=== PATIENT | male | born 1990 | race African-American/Black ===

== ENCOUNTER 2018-12-03 08:07 | Emergency (ER) | payer SELFPAY ==
--- NOTE | 2018-12-03 08:54 | ER ---
Nurse's Notes [facility] Name: Antonio Ryan Age: 27 yrs Sex: Male : 1990 Arrival Date: 12/03/2018 Time: 08:08 Bed 13 Private MD: Diagnosis: Cellulitis of the Right 2nd Finger Presentation: 12/03 08:16 Presenting complaint: Patient states: patient complains of swelling on the left index da2 finger for three days. Transition of care: patient was not received from another setting of care. Onset of symptoms was November 30, 2018. Risk Assessment: Do you want to hurt yourself or someone else? Patient reports no desire to harm self or others. Initial Sepsis Screen: Does the patient meet any 2 criteria? No. Patient's initial sepsis screen is negative. Does the patient have a suspected source of infection? No. Patient's initial sepsis screen is negative. Care prior to arrival: None. 08:16 Method Of Arrival: Ambulatory da2 08:16 Acuity: CITLALLI 4 da2 Triage Assessment: 08:19 General: Appears in no apparent distress. Behavior is calm, cooperative. Pain: da2 Complains of pain in left index finger Pain does not radiate. Pain currently is 10 out of 10 on a pain scale. Quality of pain is described as throbbing, Pain began 2-3 days ago. Is continuous. Neuro: Level of Consciousness is awake, alert, obeys commands. Cardiovascular: Patient's skin is warm and dry. Respiratory: Airway is patent Respiratory effort is even, unlabored, Respiratory pattern is regular, symmetrical. Derm: Skin is dry, Skin is normal, Skin temperature is warm. Musculoskeletal: Swelling present in left index finger. Historical: - Allergies: 08:19 No Known Allergies; da2 - Home Meds: 08:19 None [Active]; da2 - PMHx: 08:19 None; da2 - PSHx: 08:19 testicular surgery; left hip; da2 - Immunization history:: Adult Immunizations unknown, Last tetanus immunization: unknown. - Social history:: Smoking status: Patient uses tobacco products, smokes one-half pack cigarettes per day. - Ebola Screening: : No symptoms or risks identified at this time. Screenin:30 Abuse screen: Denies threats or abuse. Denies injuries from another. Nutritional jl7 screening: No deficits noted. Tuberculosis screening: No symptoms or risk factors identified. Fall Risk None identified. Assessment: 08:24 General: see triage assessment. da2 Vital Signs: 08:19 BP 135 / 88; Pulse 82; Resp 17 S; Temp 98.3(O); Pulse Ox 99% on R/A; Pain 10/10; da2 ED Course: 08:08 Patient arrived in ED. as 08:11 Terrie Chopra, RN is Primary Nurse. jl7 08:18 Triage completed. da2 08:18 Juaquin Le PA is PHCP. jmm 08:19 Arm band placed on right wrist. da2 08:19 Patient has correct armband on for positive identification. Bed in low position. Call jl7 light in reach. Side rails up X 1. Pulse ox on. NIBP on. 08:25 Ice pack applied. da2 08:53 Dustin Givens MD is Attending Physician. [facility] 08:59 No provider procedures requiring assistance completed. Patient did not have IV access jl7 during this emergency room visit. Administered Medications: No medications were administered Outcome: 08:53 Discharge ordered by MD. [facility] 08:59 Discharged to home ambulatory. jl7 08:59 Condition: stable 08:59 Discharge instructions given to patient, Instructed on discharge instructions, follow up and referral plans. medication usage, Demonstrated understanding of instructions, follow-up care, medications, Prescriptions given X 2. 09:00 Patient left the ED. jl Signatures: Juaquin Le PA PA jmm Martinez, Amelia as Terrie Chopra RN RN jl7 Paresh Thompson RN RN 2
--- NOTE | 2018-12-03 08:54 | EDPHYS ---
Physician Documentation [facility] Name: Antonio Ryan Age: 27 yrs Sex: Male : 1990 Arrival Date: 12/03/2018 Time: 08:08 Bed 13 Private MD: HAILY Physician Dustin Givens HPI: 12/03 08:48 This 27 yrs old Black Male presents to ER via Ambulatory with complaints of Finger jmm Swelling. 08:48 The patient or guardian reports pain, swelling. Onset: The symptoms/episode jmm began/occurred gradually, 3 day(s) ago. Modifying factors: The symptoms are alleviated by nothing, the symptoms are aggravated by nothing. Associated signs and symptoms: Pertinent negatives: fever. This is a 27 year old male with no chronic medical conditions that presents to the ED with complaints of pain and swelling to his right 2nd finger beginning 3 days ago. Patient denies fever. Patient states this occurs at nearly a yearly basis. Patient states need and I and D with a previous episode which was much worse. . Historical: - Allergies: 08:19 No Known Allergies; da2 - Home Meds: 08:19 None [Active]; da2 - PMHx: 08:19 None; da2 - PSHx: 08:19 testicular surgery; left hip; da2 - Immunization history:: Adult Immunizations unknown, Last tetanus immunization: unknown. - Social history:: Smoking status: Patient uses tobacco products, smokes one-half pack cigarettes per day. - Ebola Screening: : No symptoms or risks identified at this time. ROS: 08:48 Constitutional: Negative for fever, chills, and weight loss, Cardiovascular: Negative jmm for chest pain, palpitations, and edema, Respiratory: Negative for shortness of breath, cough, wheezing, and pleuritic chest pain. 08:48 MS/extremity: Positive for pain, swelling. 08:48 All other systems are negative. Exam: 08:48 Head/Face: atraumatic. Eyes: EOMI, no conjunctival erythema appreciated ENT: Moist jmm Mucus Membranes Neck: Trachea midline, Supple Chest/axilla: Normal chest wall appearance and motion. Cardiovascular: Regular rate and rhythm. No edema appreciated Respiratory: Normal respirations, no respiratory distress appreciated Abdomen/GI: Non distended, soft Back: Normal ROM 08:48 Constitutional: The patient appears in no acute distress, alert, awake. 08:48 Musculoskeletal/extremity: FROM appreciated to the left 2nd finger, no pain on extension, < 2 sec dist cap refill, . 08:48 Skin: Appearance: erythema noted to the right 2nd finger, no fluctuance appreciated. 08:48 Neuro: Orientation: is normal, Mentation: is normal, Memory: is normal. 08:48 Psych: Behavior/mood is pleasant, cooperative. Vital Signs: 08:19 BP 135 / 88; Pulse 82; Resp 17 S; Temp 98.3(O); Pulse Ox 99% on R/A; Pain 10/10; da2 MDM: 08:22 Patient medically screened. [facility] 08:51 Data reviewed: vital signs, nurses notes. Counseling: I had a detailed discussion with jalen the patient and/or guardian regarding: the historical points, exam findings, and any diagnostic results supporting the discharge/admit diagnosis, the need for outpatient follow up, to return to the emergency department if symptoms worsen or persist or if there are any questions or concerns that arise at home. ED course: Patient is alert and non toxic in appearance in the ED. I discussed with the patient the need to follow up with pcp and otherwise given strict return precautions. Patient understood and agrees with the plan of care. . Administered Medications: No medications were administered Disposition: 13:28 Co-signature as Attending Physician, Dustin Givens MD I agree with the assessment and jagdsih plan of care. Disposition: 12/03/18 08:53 Discharged to Home. Impression: Cellulitis of the Right 2nd Finger. - Condition is Stable. - Discharge Instructions: Cellulitis, Adult. - Prescriptions for Ultracet 37.5- 325 mg Oral Tablet - take 1 tablet by ORAL route every 6 hours - for up to 5 days; do not exceed 8 tablets per day.; 12 tablet. Bactrim DS 800- 160 mg Oral Tablet - take 1 tablet by ORAL route every 12 hours for 10 days; 20 tablet. - Medication Reconciliation Form, Thank You Letter, Antibiotic Education, Prescription Opioid Use, Work release form form. - Follow up: Private Physician; When: 2 - 3 days; Reason: Recheck today's complaints, Continuance of care, Re-evaluation by your physician. Signatures: Dustin Givens MD MD cha Mickail, Joel, PA PA Terrie Pemberton RN RN jl7 Paresh Thompson RN RN da2 Corrections: (The following items were deleted from the chart) 09:00 08:53 12/03/2018 08:53 Discharged to Home. Impression: Cellulitis of the Right 2nd jl7 Finger. Condition is Stable. Forms are Medication Reconciliation Form, Thank You Letter, Antibiotic Education, Prescription Opioid Use. Follow up: Private Physician; When: 2 - 3 days; Reason: Recheck today's complaints, Continuance of care, Re-evaluation by your physician. jalen
[2018-12-03 09:06] VITALS: BP 135/88; TEMP 98.3; O2SAT 99
== END 2018-12-03 09:00 | disposition home or self-care (01) ==
LOC: ER 08:07
DX: L03.011 Cellulitis of right finger (principal); F17.210 Nicotine dependence, cigarettes, uncomplicated
CPT/HCPCS: 99283

== ENCOUNTER 2019-08-10 13:49 | Emergency (ER) | payer SELFPAY ==
--- OUTSIDE RECORDS SUMMARY | 2019-08-10 13:51 | XMS REPORT | Clinical Summary ---
:1990 Author Organization [facility] Address [address] [place] [id number] Care Team Providers Name Role Phone Unavailable Primary Care Provider Unavailable Allergies Not on File Medications Medication Sig Dispensed Refills Start Date End Date Status ibuprofen (MOTRIN) 800 Take 1 tablet by 30 tablet 0 02/11/2016 Active mg tabletIndications: mouth every 8 Pain, dental hours as needed for Pain (take with food). traMADol (ULTRAM) 50 Take 1 tablet by 15 tablet 0 02/11/2016 Active mg tabletIndications: mouth every 8 Pain, dental hours as needed for Pain. Active Problems Not on file Social History Tobacco Use Types Packs/Day Years Used Date Current Every Day Smoker Alcohol Use Drinks/Week oz/Week Comments Not Asked 0 Standard drinks or equivalent 0.0 Sex Assigned at Date Recorded Not on file Job Start Date Occupation Industry Not on file Not on file Not on file Travel History Travel Start Travel End No recent travel history available. Last Filed Vital Signs Not on file Plan of Treatment Health Maintenance Due Date Last Done Comments IMM Influenza Seasonal Nov to April (>/= 19 yrs) 11/20/2019 Results Not on fileafter 08/09/2018 Insurance Payer Benefit Plan / Subscriber ID Effective Dates Phone Addre ss Type Group CIGNA CIGNA xxxxxxxxxxx 2016-[facility] [phone] [address] t [employer] [id number] (Work) [id number]
--- OUTSIDE RECORDS SUMMARY | 2019-08-10 13:51 | XMS REPORT | Clinical Summary ---
:[address] [facility] Address [address] [place] [address] Care Team Providers Name Role Phone Asked, No Pcp Primary Care Provider Unavailable Allergies No Known Allergies Medications No known medications Active Problems Not on file Social History Tobacco Use Types Packs/Day Years Used Date Current Every Day Smoker Smokeless Tobacco: Never Used Sex Assigned at Date Recorded Not on file Job Start Date Occupation Industry Not on file Not on file Not on file Travel History Travel Start Travel End No recent travel history available. Last Filed Vital Signs Not on file Plan of Treatment Health Maintenance Due Date Last Done Comments INFLUENZA VACCINE 09/20/2019 Results Not on fileafter 08/09/2018
--- NOTE | 2019-08-10 15:00 | ER ---
Nurse's Notes [facility] Name: Antonio Ryan Age: 28 yrs Sex: Male : 1990 Arrival Date: 08/10/2019 Time: 13:50 Bed 6 Private MD: Diagnosis: Periapical abscess without sinus;Essential (primary) hypertension Presentation: 08/09 14:05 Chief complaint: Patient states: L sided facial swelling that began Sunday. Pt reports ss he has a bad tooth. Coronavirus screen: Proceed with normal triage. Patient denies a cough. Patient denies shortness of breath or difficulty breathing. Patient denies measured and/or subjective temperature greater than 100.4F prior to today's visit. Patient denies travel on a cruise ship or to a country the [facility] currently lists as an affected area. Patient denies contact with known and/or suspected case of COVID-19. Ebola Screen: Patient denies exposure to infectious person. Patient denies travel to an Ebola-affected area in the 21 days before illness onset. Initial Sepsis Screen: Does the patient meet any 2 criteria? No. Patient's initial sepsis screen is negative. Does the patient have a suspected source of infection? Yes: Other: dental. Risk Assessment: Do you want to hurt yourself or someone else? Patient reports no desire to harm self or others. Onset of symptoms was August 08, 2019. 14:05 Method Of Arrival: Ambulatory ss 14:05 Acuity: CITLALLI 3 ss Historical: - Allergies: 14:07 Sulfa (Sulfonamide Antibiotics); ss - Home Meds: 14:07 None [Active]; ss - PMHx: 14:07 None; ss - PSHx: 14:07 testicular surgery; left hip; ss - Immunization history:: Adult Immunizations up to date. - Social history:: Smoking status: Patient reports the use of cigarette tobacco products, smokes one-half pack cigarettes per day. Screenin:24 Abuse screen: Denies threats or abuse. Denies injuries from another. Nutritional sv screening: No deficits noted. Tuberculosis screening: No symptoms or risk factors identified. Fall Risk None identified. Assessment: 15:20 General: Appears in no apparent distress. uncomfortable, well developed, Behavior is sv calm, cooperative, appropriate for age. Pain: Complains of pain in left cheek and left mandible Pain currently is 10 out of 10 on a pain scale. Pain began 2-3 days ago. Is continuous. Neuro: Level of Consciousness is awake, alert, obeys commands, Oriented to person, place, time, situation, Moves all extremities. Full function Gait is steady. Respiratory: Airway is patent Respiratory effort is even, unlabored, Respiratory pattern is regular, symmetrical. EENT: Reports pain in left cheek and left mandible. Derm: Skin is intact, Skin is pink, warm \T\ dry. 15:27 Reassessment: Pt waiting IM shot time before discharge. sv 15:47 Reassessment: Patient appears in no apparent distress at this time. Patient and/or sv family updated on plan of care and expected duration. Pain level reassessed. Patient is alert, oriented x 3, equal unlabored respirations, skin warm/dry/pink. Patient states symptoms have improved. Vital Signs: 14:05 BP 160 / 81; Pulse 87; Resp 17; Temp 98.4(TE); Pulse Ox 100% on R/A; Weight 112.49 kg; ss Height 6 ft. 2 in. (187.96 cm); Pain 10/10; 15:00 BP 151 / 98; Pulse 76; Resp 18; Pulse Ox 100% ; sv 15:30 BP 154 / 98; Pulse 76; Resp 18; Pulse Ox 100% ; sv 15:46 Pain 5/10; sv 14:05 Body Mass Index 31.84 (112.49 kg, 187.96 cm) ED Course: 13:50 Patient arrived in ED. bp1 14:07 Triage completed. ss 14:07 Arm band placed on right wrist. ss 14:36 Juliet Keyes FNP-C is PHCP. snw 14:36 Bola Haynes MD is Attending Physician. snw 14:45 Laury Mason RN is Primary Nurse. sv 15:24 Patient has correct armband on for positive identification. Bed in low position. Call sv light in reach. Adult w/ patient. Door closed. Head of bed elevated. 15:47 No provider procedures requiring assistance completed. Patient did not have IV access sv during this emergency room visit. Administered Medications: 15:24 Drug: Dilaudid 1 mg {Note: rass2.} Route: IM; Site: right deltoid; sv 15:46 Follow up: Pain 5/10 Adult; Response: No adverse reaction; Pain is decreased; RASS: sv Alert and Calm (0) 15:24 Drug: Clindamycin 300 mg Route: PO; sv 15:46 Follow up: Response: No adverse reaction sv 15:24 Drug: Motrin 600 mg Route: PO; sv 15:46 Follow up: Response: No adverse reaction sv Outcome: 14:59 Discharge ordered by . sned 15:47 Discharged to home ambulatory, with family. sv 15:47 Condition: stable 15:47 Discharge instructions given to patient, family, Instructed on discharge instructions, follow up and referral plans. no drinking with medication, no driving heavy equipment, medication usage, Demonstrated understanding of instructions, follow-up care, medications, Prescriptions given X 4. 15:47 Patient left the ED. sv Signatures: Laury Mason, RN RN Juliet Keyes, DIRECTOR FEDERAL-C DIRECTOR FEDERAL-[place] Shirin Contreras RN RN Rosalba Weinstein
--- NOTE | 2019-08-10 15:00 | EDPHYS ---
Physician Documentation [facility] Name: Antonio Ryan Age: 28 yrs Sex: Male : 1990 Arrival Date: 08/10/2019 Time: 13:50 Bed 6 Private MD: ED Physician Bola Haynes HPI: 08/09 20:00 This 28 yrs old Black Male presents to ER via Ambulatory with complaints of Facial snw Swelling, Abcess Tooth. 20:00 The patient presents with pain, swelling. The problem is located in the left cheek. snw Onset: The symptoms/episode began/occurred suddenly, 2 day(s) ago, and became persistent. Duration: The symptoms are continuous. Associated signs and symptoms: Pertinent positives: pain, swelling, facial, Pertinent negatives: chills, fever, vomiting. Severity of symptoms: At their worst the symptoms were moderate. The patient has not experienced similar symptoms in the past. It is unknown whether or not the patient has recently seen a physician. Historical: - Allergies: 14:07 Sulfa (Sulfonamide Antibiotics); ss - Home Meds: 14:07 None [Active]; ss - PMHx: 14:07 None; ss - PSHx: 14:07 testicular surgery; left hip; ss - Immunization history:: Adult Immunizations up to date. - Social history:: Smoking status: Patient reports the use of cigarette tobacco products, smokes one-half pack cigarettes per day. ROS: 19:59 Constitutional: Negative for fever, chills, and weight loss, Eyes: Negative for injury, snw pain, redness, and discharge, Neck: Negative for injury, pain, and swelling, Cardiovascular: Negative for chest pain, palpitations, and edema, Respiratory: Negative for shortness of breath, cough, wheezing, and pleuritic chest pain, Abdomen/GI: Negative for abdominal pain, nausea, vomiting, diarrhea, and constipation, Back: Negative for injury and pain, : Negative for injury, bleeding, discharge, and swelling, MS/Extremity: Negative for injury and deformity, Skin: Negative for injury, rash, and discoloration, Neuro: Negative for headache, weakness, numbness, tingling, and seizure. 19:59 ENT: Positive for dental pain, Teeth pain Exam: 19:56 Constitutional: This is a well developed, well nourished patient who is awake, alert, snw and in no acute distress. Eyes: Pupils equal round and reactive to light, extra-ocular motions intact. Lids and lashes normal. Conjunctiva and sclera are non-icteric and not injected. Cornea within normal limits. Periorbital areas with no swelling, redness, or edema. ENT: Nares patent. No nasal discharge, no septal abnormalities noted. Tympanic membranes are normal and external auditory canals are clear. Oropharynx with no redness, swelling, or masses, exudates, or evidence of obstruction, uvula midline. Mucous membranes moist. Dental caries to back molars to left with tenderness Neck: Trachea midline, no thyromegaly or masses palpated, and no cervical lymphadenopathy. Supple, full range of motion without nuchal rigidity, or vertebral point tenderness. No Meningismus. Chest/axilla: Normal chest wall appearance and motion. Nontender with no deformity. No lesions are appreciated. Cardiovascular: Regular rate and rhythm with a normal S1 and S2. No gallops, murmurs, or rubs. Normal PMI, no JVD. No pulse deficits. Respiratory: Lungs have equal breath sounds bilaterally, clear to auscultation and percussion. No rales, rhonchi or wheezes noted. No increased work of breathing, no retractions or nasal flaring. Abdomen/GI: Soft, non-tender, with normal bowel sounds. No distension or tympany. No guarding or rebound. No evidence of tenderness throughout. Back: No spinal tenderness. No costovertebral tenderness. Full range of motion. Skin: Warm, dry with normal turgor. Normal color with no rashes, no lesions, and no evidence of cellulitis. MS/ Extremity: Pulses equal, no cyanosis. Neurovascular intact. Full, normal range of motion. Neuro: Awake and alert, GCS 15, oriented to person, place, time, and situation. Cranial nerves II-XII grossly intact. Motor strength 5/5 in all extremities. Sensory grossly intact. Cerebellar exam normal. Normal gait. Psych: Awake, alert, with orientation to person, place and time. Behavior, mood, and affect are within normal limits. 19:56 Head/face: Noted is swelling, that is moderate, of the left cheek. Vital Signs: 14:05 BP 160 / 81; Pulse 87; Resp 17; Temp 98.4(TE); Pulse Ox 100% on R/A; Weight 112.49 kg; ss Height 6 ft. 2 in. (187.96 cm); Pain 10/10; 15:00 BP 151 / 98; Pulse 76; Resp 18; Pulse Ox 100% ; sv 15:30 BP 154 / 98; Pulse 76; Resp 18; Pulse Ox 100% ; sv 15:46 Pain 5/10; sv 14:05 Body Mass Index 31.84 (112.49 kg, 187.96 cm) ss MDM: 14:46 Patient medically screened. snw 19:57 Data reviewed: vital signs, nurses notes. Data interpreted: Pulse oximetry: on room air snw is 100 %. Interpretation: normal. Counseling: I had a detailed discussion with the patient and/or guardian regarding: the historical points, exam findings, and any diagnostic results supporting the discharge/admit diagnosis, the presence of at least one elevated blood pressure reading (>120/80) during this emergency department visit, the need for outpatient follow up, to return to the emergency department if symptoms worsen or persist or if there are any questions or concerns that arise at home. Response to treatment: the patient's symptoms have markedly improved after treatment. Special discussion: I have referred the patient to see his PCP for further evaluation of high blood pressure. Based on the history and exam findings, there is no indication for further emergent testing or inpatient evaluation. I discussed with the patient/guardian the need to see a dentist for further evaluation of the symptoms. I discussed with the patient/guardian the need to see the primary care provider for further evaluation of the symptoms. Administered Medications: 15:24 Drug: Dilaudid 1 mg {Note: rass2.} Route: IM; Site: right deltoid; sv 15:46 Follow up: Pain 5/10 Adult; Response: No adverse reaction; Pain is decreased; RASS: sv Alert and Calm (0) 15:24 Drug: Clindamycin 300 mg Route: PO; sv 15:46 Follow up: Response: No adverse reaction sv 15:24 Drug: Motrin 600 mg Route: PO; sv 15:46 Follow up: Response: No adverse reaction sv Disposition: 08/10 07:06 Co-signature as Attending Physician, Bola Haynes MD. ma2 Disposition: 08/10/19 14:59 Discharged to Home. Impression: Periapical abscess without sinus, Essential (primary) hypertension. - Condition is Stable. - Discharge Instructions: Dental Abscess, Dental Pain, Hypertension, How to Take Your Blood Pressure, [id number], Diet and Dental Disease, DASH Eating Plan, Rehydration, Adult, Managing Your Hypertension. - Prescriptions for Clindamycin HCl 150 mg Oral Capsule - take 2 capsule by ORAL route every 8 hours for 10 days; 60 capsule. chlorhexidine gluconate 0.12 % Mucous Membrane mouthwash - place 15 milliliter by MUCOUS MEMBRANE route 2 times per day (after meals), swish in mouth for 30 seconds then spit out; 480 milliliter. Mobic 7.5 mg Oral Tablet - take 1 tablet by ORAL route 2 times per day take with food; 20 tablet. Ultram 50 mg Oral Tablet - take 1 tablet by ORAL route every 6 hours As needed; 12 tablet. - Medication Reconciliation Form, Thank You Letter, Antibiotic Education, Prescription Opioid Use, Work release form form. - Follow up: Emergency Department; When: As needed; Reason: Worsening of condition. Follow up: Private Physician; When: 1 - 2 days; Reason: Recheck today's complaints, Continuance of care, Re-evaluation by your physician. Signatures: Laury Mason RN RN sv Therrien, Shelly, ILEANA-C MELTER ASSISTANT-Shirin Salmeron RN RN ss Bola Haynes MD MD ny2 Corrections: (The following items were deleted from the chart) 08/09 15:47 14:59 08/10/2019 14:59 Discharged to Home. Impression: Periapical abscess without sv sinus; Essential (primary) hypertension. Condition is Stable. Forms are Medication Reconciliation Form, Thank You Letter, Antibiotic Education, Prescription Opioid Use. Follow up: Emergency Department; When: As needed; Reason: Worsening of condition. Follow up: Private Physician; When: 1 - 2 days; Reason: Recheck today's complaints, Continuance of care, Re-evaluation by your physician. snw
[2019-08-10] MEDS ORDERED: IBUPROFEN 200 MG TAB PO ONE (15:27)
[2019-08-10] MEDS ORDERED: HYDROMORPHONE HCL 1 MG/ML INJ ONE (15:27)
[2019-08-10] MEDS ORDERED: IBUPROFEN 400 MG TAB ONE (15:27)
[2019-08-10 15:54] VITALS: BP 160/81; TEMP 98.4; O2SAT 100
== END 2019-08-10 15:47 | disposition home or self-care (01) ==
LOC: ER 13:49
DX: K04.7 Periapical abscess without sinus (principal); I10 Essential (primary) hypertension; F17.210 Nicotine dependence, cigarettes, uncomplicated; Z88.2 Allergy status to sulfonamides
CPT/HCPCS: 96372; 99283; J1170

== ENCOUNTER 2019-08-24 14:11 | Emergency (ER) | payer SELFPAY ==
--- OUTSIDE RECORDS SUMMARY | 2019-08-24 14:13 | XMS REPORT | Clinical Summary ---
:1990 Author Organization [facility] Address [address] [place] [address] Care Team Providers Name Role Phone Asked, [...] INFLUENZA VACCINE 09/20/2019 Results Not on fileafter 08/23/2018
--- OUTSIDE RECORDS SUMMARY | 2019-08-24 14:13 | XMS REPORT | Clinical Summary ---
:[address] [facility] Address [address] [place] [id number] Care Team Providers Name Role Phone Unavailable [...] 19 yrs) 11/20/2019 Results Not on fileafter 08/23/2018 Insurance Payer Benefit Plan / Subscriber ID Effective Dates Phone Addre ss Type Group CIGNA CIGNA xxxxxxxxxxx 2016-[facility] [phone] [id number] t AMBER [place]DISON [id number] (Work) [id number]
[2019-08-24] MEDS ORDERED: IBUPROFEN 400 MG TAB ONE (14:42)
--- NOTE | 2019-08-24 15:18 | EDPHYS ---
Physician Documentation [facility] Name: Antonio Ryan Age: 28 yrs Sex: Male : 1990 Arrival Date: 08/24/2019 Time: 14:14 Bed 19 Private MD: ED Physician Bola Haynes HPI: 08/23 15:14 This 28 yrs old Black Male presents to ER via Ambulatory with complaints of Finger ma2 Injury. 15:14 Mechanism of injury: Crush injury:. Associated injuries: The patient sustained right ma2 5th finger. Onset: The symptoms/episode began/occurred suddenly, 2 day(s) ago. The patient has not experienced similar symptoms in the past. Historical: - Allergies: 14:31 Sulfa (Sulfonamide Antibiotics); ah - Home Meds: 14:31 None [Active]; ah - PMHx: 14:31 None; ah - PSHx: 14:31 left hip; testicles; ah - Immunization history:: Adult Immunizations up to date. - Social history:: Smoking status: Patient reports the use of cigarette tobacco products, smokes one-half pack cigarettes per day, Patient uses alcohol, occasionally. Patient/guardian denies using alcohol, street drugs, The patient lives alone. - Family history:: not pertinent. ROS: 15:14 Constitutional: Negative for fever, chills, and weight loss. ma2 15:14 All other systems are negative. Exam: 15:14 Constitutional: This is a well developed, well nourished patient who is awake, alert, ma2 and in no acute distress. ENT: Nares patent. No nasal discharge, no septal abnormalities noted. Tympanic membranes are normal and external auditory canals are clear. Oropharynx with no redness, swelling, or masses, exudates, or evidence of obstruction, uvula midline. Mucous membranes moist. Neck: Trachea midline, no thyromegaly or masses palpated, and no cervical lymphadenopathy. Supple, full range of motion without nuchal rigidity, or vertebral point tenderness. No Meningismus. Chest/axilla: Normal chest wall appearance and motion. Nontender with no deformity. No lesions are appreciated. Cardiovascular: Regular rate and rhythm with a normal S1 and S2. No gallops, murmurs, or rubs. Normal PMI, no JVD. No pulse deficits. Respiratory: Lungs have equal breath sounds bilaterally, clear to auscultation and percussion. No rales, rhonchi or wheezes noted. No increased work of breathing, no retractions or nasal flaring. Abdomen/GI: Soft, non-tender, with normal bowel sounds. No distension or tympany. No guarding or rebound. No evidence of tenderness throughout. Skin: Warm, dry with normal turgor. Normal color with no rashes, no lesions, and no evidence of cellulitis. MS/ Extremity: right 5th dital digit tenderness,, Pulses equal, no cyanosis. Neurovascular intact. Full, normal range of motion. Neuro: Awake and alert, GCS 15, oriented to person, place, time, and situation. Cranial nerves II-XII grossly intact. Motor strength 5/5 in all extremities. Sensory grossly intact. Cerebellar exam normal. Normal gait. Vital Signs: 14:25 BP 131 / 80; Pulse 76; Resp 17; Temp 98.4; Pulse Ox 98% ; Weight 112.94 kg; Height 6 ah ft. 2 in. (187.96 cm); Pain 8/10; 14:25 Body Mass Index 31.97 (112.94 kg, 187.96 cm) MDM: 14:48 Patient medically screened. ma2 15:14 Differential diagnosis: extremity fracture, sprain vs pain. Data reviewed: vital signs, ma2 nurses notes. Counseling: I had a detailed discussion with the patient and/or guardian regarding: the historical points, exam findings, and any diagnostic results supporting the discharge/admit diagnosis, the presence of at least one elevated blood pressure reading (>120/80) during this emergency department visit, the need for outpatient follow up. Response to treatment: the patient's symptoms have markedly improved after treatment. 08/23 14:29 Order name: XRAY Hand RIGHT 3 View; Complete Time: 16:06 mt 08/23 15:19 Order name: Finger Splint ma2 Administered Medications: 14:35 Drug: Ibuprofen 400 mg Route: PO; Disposition: 08/24/19 15:17 Discharged to Home. Impression: Nondisplaced fracture of distal phalanx of right little finger. - Condition is Stable. - Discharge Instructions: Finger Fracture, [id number]. - Prescriptions for Diclofenac Sodium 75 mg Oral Tablet Sustained Release - take 1 tablet by ORAL route 2 times per day; 30 tablet. - Medication Reconciliation Form, Thank You Letter, Antibiotic Education, Prescription Opioid Use, Work release form form. - Follow up: Private Physician; When: Tomorrow; Reason: Continuance of care. Follow up: Salvador Loza MD; When: Tomorrow; Reason: If symptoms return. Signatures: Dispatcher [employer] Laury Bravo RN RN Bola Haynes MD MD [facility] Riddhi Su RN RN Corrections: (The following items were deleted from the chart) 16:06 15:17 08/24/2019 15:17 Discharged to Home. Impression: Nondisplaced fracture of distal ma2 phalanx of right little finger. Condition is Stable. Forms are Medication Reconciliation Form, Thank You Letter, Antibiotic Education, Prescription Opioid Use. Follow up: Private Physician; When: Tomorrow; Reason: Continuance of care. ma2 16:28 16:06 08/24/2019 15:17 Discharged to Home. Impression: Nondisplaced fracture of distal sv phalanx of right little finger. Condition is Stable. Discharge Instructions: Finger Fracture, [id number]. Prescriptions for Diclofenac Sodium 75 mg Oral Tablet Sustained Release - take 1 tablet by ORAL route 2 times per day; 30 tablet. and Forms are Medication Reconciliation Form, Thank You Letter, Antibiotic Education, Prescription Opioid Use, Work release form. Follow up: Private Physician; When: Tomorrow; Reason: Continuance of care. Follow up: Dr. Salvador Loza; When: Tomorrow; Reason: If symptoms return. ma2
--- NOTE | 2019-08-24 15:18 | ER ---
Nurse's Notes [facility] Name: Antonio Ryan Age: 28 yrs Sex: Male : 1990 Arrival Date: 08/24/2019 Time: 14:14 Bed 19 Private MD: Diagnosis: Nondisplaced fracture of distal phalanx of right little finger Presentation: 08/23 14:25 Chief complaint: Patient states: smashed right 5th finger at work on Sunday with a hammer. Coronavirus screen: Proceed with normal triage. Patient denies contact with known and/or suspected case of COVID-19. Ebola Screen: No symptoms or risks identified at this time. 14:25 Method Of Arrival: Ambulatory 14:25 Initial Sepsis Screen: Does the patient meet any 2 criteria? No. Patient's initial sepsis screen is negative. Does the patient have a suspected source of infection? No. Patient's initial sepsis screen is negative. Risk Assessment: Do you want to hurt yourself or someone else? Patient reports no desire to harm self or others. Onset of symptoms was August 22, 2019. 14:25 Acuity: CITLALLI 4 Historical: - Allergies: 14:31 Sulfa (Sulfonamide Antibiotics); - Home Meds: 14:31 None [Active]; - PMHx: 14:31 None; - PSHx: 14:31 left hip; testicles; - Immunization history:: Adult Immunizations up to date. - Social history:: Smoking status: Patient reports the use of cigarette tobacco products, smokes one-half pack cigarettes per day, Patient uses alcohol, occasionally. Patient/guardian denies using alcohol, street drugs, The patient lives alone. - Family history:: not pertinent. Vital Signs: 14:25 BP 131 / 80; Pulse 76; Resp 17; Temp 98.4; Pulse Ox 98% ; Weight 112.94 kg; Height 6 ah ft. 2 in. (187.96 cm); Pain 8/10; 14:25 Body Mass Index 31.97 (112.94 kg, 187.96 cm) ED Course: 14:14 Patient arrived in ED. fj1 14:17 Bola Haynes MD is Attending Physician. ma2 14:25 Riddhi Su, RN is Primary Nurse. 14:30 Triage completed. 14:51 XRAY Hand RIGHT 3 View In Process Unspecified. EDMS 16:06 Salvador Loza MD is Referral Physician. ma Administered Medications: 14:35 Drug: Ibuprofen 400 mg Route: PO; Outcome: 15:17 Discharge ordered by . maRaiza 16:28 Patient left the ED. sv Signatures: Dispatcher [employer] EDLaury Escudero RN RN Bola Haynes MD MD [facility] Jose Gastelum [facility] Riddhi Su RN RN
--- NOTE | 2019-08-24 15:23 | RAD REPORT ---
EXAM DESCRIPTION: RAD - Hand Right 3 View - 08/24/2019 2:50 pm CLINICAL HISTORY: Deformity;Painblunt force trauma distal fifth digit COMPARISON: No comparisons FINDINGS: Comminuted right fifth distal phalanx tuft fracture. No angulation deformity. No foreign b darya seen. Minimal displacement is seen. PIP joint and DIP joint are intact. No other acute bone or joint finding. IMPRESSION: Comminuted fracture distal right fifth tuft as detailed
[2019-08-24 16:48] VITALS: BP 131/80; TEMP 98.4; O2SAT 98
== END 2019-08-24 16:28 | disposition home or self-care (01) ==
LOC: ER 14:11
PROC: 2W3JX1Z Immobilization of Right Finger using Splint (ICD-10-PCS; principal; 2019-08-24)
DX: S62.666A Nondisplaced fracture of distal phalanx of right little finger, initial encounter for closed fracture (principal); X58.XXXA Exposure to other specified factors, initial encounter; Y93.9 Activity, unspecified; Y92.9 Unspecified place or not applicable; Z88.2 Allergy status to sulfonamides; F17.210 Nicotine dependence, cigarettes, uncomplicated
CPT/HCPCS: 99283